=== PATIENT | male | born 1935 | race Caucasian/White ===

== ENCOUNTER 2016-08-20 13:26 | Outpatient (CLI) | payer MEDICARE | END 2016-08-20 13:27 | disposition home or self-care (01) | LOC: HPCALD 13:26 | PROVIDERS: ATTEND Family Medicine | DX: N40.1 Benign prostatic hyperplasia with lower urinary tract symptoms (principal); R97.20 Elevated prostate specific antigen [PSA] | CPT/HCPCS: 84153 ==

== ENCOUNTER 2016-11-19 09:09 | Outpatient (CLI) | payer MEDICARE | END 2016-11-19 09:10 | disposition home or self-care (01) | LOC: BURLAB 09:09 | PROVIDERS: ATTEND Urology | DX: N40.2 Nodular prostate without lower urinary tract symptoms (principal) | CPT/HCPCS: 36415; G0103 ==